=== PATIENT | male | born 1940 | race Caucasian/White ===

== ENCOUNTER 2017-10-14 13:08 | Observation (INO) | payer MEDICARE, BC ==
[~2017-10-14] VITALS: Ht 172.7 cm; Wt 92.8 kg
[2017-10-14] MEDS ORDERED: MORPHINE SULFATE 4 MG/ML SYR IV STA (13:36)
[2017-10-14] MEDS ORDERED: ONDANSETRON HCL INJ 2 MG/ML VIAL IV STA (13:36)
[2017-10-14] MEDS ORDERED: MORPHINE SULFATE 2 MG/ML SYR IV SCH (14:30)
--- NOTE | 2017-10-14 14:53 | Diagnostic Imaging Report ---
PROCEDURE:X-RAY PELVIS, AP VIEW COMPARISON:None. INDICATIONS:LOWER BACK PAIN FINDINGS: There are no fractures, dislocations, lytic or blastic lesions. The bones are well-mineralized. The soft-tissues are unremarkable. CONCLUSION: No acute radiograph abnormality. Dictated by: Melvin Carrillo M.D. on 10/14/2017 at 14:54 Electronically approved by: Melvin Carrillo M.D. on 10/14/2017 at 14:54
[2017-10-14 14:57] LABS: BASOPHILS # (AUTO) 0.1 (0.0-0.1); BASOPHILS % 0.7 % (0.0-1.0); EOSINOPHILS # (AUTO) 0.2 (0.0-0.4); EOSINOPHILS % 2.2 % (0.0-6.0); HEMATOCRIT 43.7 % (38.2-49.6); HEMOGLOBIN 14.4 g/dL (14.0-18.0); LYMPHOCYTES # (AUTO) 1.6 (1.0-3.2); LYMPHOCYTES % 18.2 % (18.0-39.1); MEAN CORPUSCULAR HEMOGLOBIN 28.4 pg (28-32); MEAN CORPUSCULAR VOLUME 86.2 fL (81-99); MONOCYTES # (AUTO) 0.8 (0.2-0.8); MONOCYTES % 9.4 % (4.4-11.3); NEUTROPHILS # (AUTO) 6.1 (2.1-6.9); NEUTROPHILS % 68.8 % (38.7-80.0); PLATELET COUNT 228 x10e3/uL (140-360); RED BLOOD COUNT 5.07 x10e6/uL (4.3-5.7); RED CELL DISTRIBUTION WIDTH 14.4 % (11.7-14.4)
[2017-10-14 15:15] LABS: CREATINE KINASE 255 IU/L (30-200)
[2017-10-14 15:17] LABS: ALANINE AMINOTRANSFERASE 34 IU/L (0-55); ALBUMIN 3.9 g/dL (3.5-5.0); ALBUMIN/GLOBULIN RATIO 1.4 (0.8-2.0); ALKALINE PHOSPHATASE 70 IU/L (40-150); ANION GAP 11.1 mmol/L (8-16); BLOOD UREA NITROGEN 21 mg/dL (7-26); BUN/CREATININE RATIO 19 (6-25); CALCIUM 9.2 mg/dL (8.4-10.2); CARBON DIOXIDE 27 mmol/L (22-29); CHLORIDE 101 mmol/L (98-107); CREATININE, SERUM 1.09 mg/dL (0.72-1.25); EST GLOMERULAR FILTRATION RATE > 60 ML/MIN (60-); GLUCOSE 84 mg/dL (74-118); POTASSIUM 4.1 mmol/L (3.5-5.1); SODIUM 135 mmol/L (136-145)
[2017-10-14] MEDS ORDERED: SODIUM CHLORIDE FLUSH 10 ML SYR INJ PRN (18:00)
[2017-10-14] MEDS ORDERED: ONDANSETRON HCL INJ 2 MG/ML VIAL IV PRN (18:00)
--- OUTSIDE RECORDS SUMMARY | 2017-10-14 18:55 | XMS REPORT ---
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 Allergies, Adverse Reactions, Alerts This patient has no known allergies or adverse reactions. Medications This patient has no known medications. Results Test Description Test Time Test Comments Text Results Atomic Results Result Comments PELVIS AP 1-2 VIEWS [place] [address] Patient Name: QUINTON LEDEZMA MR #: [id number] : 1940 Age/Sex: 77/M Req #: [id number] Adm Physician: Ordered by: JOY ROMERO ANALYSIS TESTER Report #: [id number] Location: ER Room/Bed: Procedure: [id number] DX/PELVIS AP 1-2 VIEWS Exam Date: 10/14/17 Exam Time: 1434 REPORT STATUS: Signed PROCEDURE: X-RAY PELVIS, AP VIEW COMPARISON: None. INDICATIONS: LOWER BACK PAIN FINDINGS: There are no fractures, dislocations, lytic or blastic lesions. The bones are well-mineralized. The soft-tissues are unremarkable. CONCLUSION: No acute radiograph abnormality. Dictated by : Melvin Reza M.D. on 10/14/2017 at 14:54 Electronically approved by: Melvin Reza M.D. on 10/14/2017 at 14:54 Dictated By: MELVIN REZA MD 53 Transcribed By: BRANNON on 10/14/171453 COPY TO: JOY ROMERO NP
[2017-10-14 18:56] LABS: BILIRUBIN,URINE NEGATIVE (NEGATIVE); CLARITY,URINE CLEAR (CLEAR); COLOR,URINE YELLOW (YELLOW); KETONES,URINE NEGATIVE (NEGATIVE); LEUKOCYTE ESTERASE ,URINE NEGATIVE (NEGATIVE); NITRITE,URINE NEGATIVE (NEGATIVE); PROTEIN,URINE DIPSTICK TRACE (NEGATIVE); URINE UROBILINOGEN 1 mg/dL (0.2 - 1)
[2017-10-14] MEDS: MORPHINE SULFATE 2 MG/ML SYR IV PRN (19:00)
[2017-10-14 19:10] LABS: MUCUS,URINE MODERATE (RARE); RBC,URINE 0-5 /HPF (0-5); WBC,URINE (MAN) 0-5 /HPF (0-5)
--- NOTE | 2017-10-14 21:21 | Diagnostic Imaging Report ---
History: Low back pain, fall. Comparison studies: None Technique: Sagittal, coronal and axial T2 , sagittal T1 and IR, axial PD and T2 FS. Intravenous contrast: None Findings: Number of lumbar vertebral bodies: 5. Alignment: Normal lordosis. No scoliosis Soft tissues: Incidental large T2 hyperintense cystic lesion in left renal parenchyma approximately measures 5.3 cm in long axis. Paraspinal muscles: No signal abnormalities. Well-preserved. No atrophic changes Lower thoracic cord: Normal in signal and morphology. The tip of the conus is at T12-L1 . Cauda equina: No masses. No arachnoiditis. Vertebrae: No compression fractures, infection or neoplasm. Degenerative changes: L1-L2: Mild degenerative disc disease. No canal or foraminal stenosis. L2-L3: Mild degenerative disc disease. No canal or foraminal stenosis L3-L4: Mild degenerative disc disease. Disc bulge without canal stenosis. Mild bilateral facet arthrosis. No foraminal stenosis L4-L5: Mild degenerative disc disease. Disc bulge in combination with thickened ligamentum flavum and bilateral facet arthrosis effaces thecal sac without canal stenosis. No significant foraminal stenosis. L5-S1: Moderate degenerative disc disease with decreased T2 signal and decreased intervertebral disc space. Degenerative endplate changes. 3 mm grade 1 retrolisthesis. Disc bulge with superimposed 5 mm left subarticular disc protrusion with possible contact of left S1 nerve root. No canal stenosis. Mild bilateral foraminal stenosis. Mild bilateral facet arthrosis. Visualized bilateral sacroiliac joints: No significant abnormality. IMPRESSION: 1. Mild multilevel lumbar spondylosis with predominant findings at L5-S1. 2. No canal stenosis. 3. Disc bulge with superimposed 5 mm left subarticular disc protrusion with possible contact of left S1 nerve root. Mild bilateral foraminal stenosis at L5-S1. 4. Incidental 5 cm exophytic left renal cystic mass, can be further evaluated with nonemergent dedicated renal ultrasonogram, if previous workup has not been done. Signed by: Dr. Joselyn Lujan M.D. on 10/14/2017 9:17 PM
[2017-10-14 21:32] VITALS: BP 144/87
[2017-10-14 21:45] VITALS: BP 144/87
[2017-10-14 23:59] VITALS: BP 110/59
[2017-10-15] MEDS: MORPHINE SULFATE 2 MG/ML SYR IV PRN ×3 (03:10→16:44)
[2017-10-15] MEDS ORDERED: ATORVASTATIN CA10 MG PO (03:57)
[2017-10-15] MEDS ORDERED: HYDROCHLOROTHIA25 MG PO (03:57)
[2017-10-15] MEDS ORDERED: LOW DOSE ASPIRI81 MG PO (03:57)
[2017-10-15] MEDS ORDERED: OMEPRAZOLE40 MG PO (03:57)
[2017-10-15] MEDS ORDERED: MICARDIS40 MG PO (03:57)
[2017-10-15 04:00] VITALS: BP 125/65
[2017-10-15 08:09] VITALS: BP 110/61
[2017-10-15 12:12] VITALS: BP 149/67
[2017-10-15 16:28] VITALS: BP 119/64
[2017-10-15 20:00] VITALS: BP 124/68
[2017-10-15] MEDS: ATORVASTATIN 10 MG TAB PO SCH (21:55)
[2017-10-16] VITALS (7 sets, daily range): BP systolic 102–122; BP diastolic 57–68
[2017-10-16] MEDS: MORPHINE SULFATE 2 MG/ML SYR IV PRN ×2 (06:27→15:08)
[2017-10-16 06:35] LABS: BASOPHILS # (AUTO) 0.1 (0.0-0.1); EOSINOPHILS # (AUTO) 0.2 (0.0-0.4); EOSINOPHILS % 3.9 % (0.0-6.0); HEMATOCRIT 39.1 % (38.2-49.6); LYMPHOCYTES # (AUTO) 1.5 (1.0-3.2); LYMPHOCYTES % 25.2 % (18.0-39.1); MEAN CORPUSCULAR HEMOGLOBIN 28.3 pg (28-32); MEAN CORPUSCULAR HGB CONC 33.2 g/dL (31-35); MONOCYTES # (AUTO) 0.7 (0.2-0.8); NEUTROPHILS # (AUTO) 3.6 (2.1-6.9); NEUTROPHILS % 58.4 % (38.7-80.0); PLATELET COUNT 215 x10e3/uL (140-360); RED CELL DISTRIBUTION WIDTH 14.1 % (11.7-14.4)
[2017-10-16 06:54] LABS: ANION GAP 11.9 mmol/L (8-16); BLOOD UREA NITROGEN 19 mg/dL (7-26); BUN/CREATININE RATIO 19 (6-25); CALCIUM 8.9 mg/dL (8.4-10.2); CARBON DIOXIDE 28 mmol/L (22-29); CHLORIDE 101 mmol/L (98-107); CREATININE, SERUM 0.99 mg/dL (0.72-1.25); EST GLOMERULAR FILTRATION RATE > 60 ML/MIN (60-); GLUCOSE 93 mg/dL (74-118); POTASSIUM 3.9 mmol/L (3.5-5.1); SODIUM 137 mmol/L (136-145)
[2017-10-16] MEDS: HYDROCHLOROTHIAZIDE 25 MG TAB PO SCH (09:00)
[2017-10-16] MEDS: ASPIRIN 81 MG ENTERIC COATED PO SCH (09:22)
[2017-10-16] MEDS: PANTOPRAZOLE SOD 40 MG TABEC PO SCH (09:22)
[2017-10-16] MEDS: TELMISARTAN 40 MG TAB PO SCH (09:22)
[2017-10-16] MEDS: LIDOCAINE 5% PATCH TP SCH (12:45)
--- NOTE | 2017-10-16 19:33 | Diagnostic Imaging Report ---
EXAM: Renal Ultrasound INDICATION: Renal mass COMPARISON: Lumbar spine MRI October 14, 2017 TECHNIQUE: Transverse and longitudinal sonographic images of the kidneys and bladder were obtained. FINDINGS: RIGHT KIDNEY: 12.2 x 5.6 x 5.8 cm, normal cortical thickness. Echogenicity: Normal Hydronephrosis: None Calculi: None Cyst/Mass: None LEFT KIDNEY: 14 x 6.1 x 5.8 cm, normal cortical thickness. Echogenicity: Normal Hydronephrosis: None Calculi: None Cyst/Mass: There are 2 adjacent simple cysts measuring 5.4 cm x 3 x 5.3 cm in total. BLADDER: Normal in appearance. Pre-void bladder volume 85 cc and post-void bladder volume 0 cc. IMPRESSION: There are 2 adjacent simple cysts measuring up to 5.4 cm in total arising from the posterior lateral aspect of the left kidney inferior pole, corresponding to findings seen on prior lumbar spine MRI. No additional follow-up is indicated. Otherwise, normal sonographic appearance of the kidneys. Signed by: Dr. Eda Onofre M.D. on 10/16/2017 7:30 PM
[2017-10-16] MEDS: ATORVASTATIN 10 MG TAB PO SCH (21:09)
[2017-10-17] VITALS (8 sets, daily range): BP systolic 91–145; BP diastolic 53–66
[2017-10-17] MEDS: HYDROCHLOROTHIAZIDE 25 MG TAB PO SCH (08:59)
[2017-10-17] MEDS: ASPIRIN 81 MG ENTERIC COATED PO SCH (08:59)
[2017-10-17] MEDS: PANTOPRAZOLE SOD 40 MG TABEC PO SCH (09:00)
[2017-10-17] MEDS: TELMISARTAN 40 MG TAB PO SCH (09:00)
[2017-10-17] MEDS: LIDOCAINE 5% PATCH TP SCH (12:30)
--- NOTE | 2017-10-17 20:17 | Consultation ---
DATE OF CONSULTATION: October 17, 2017 NEUROSURGERY CONSULTATION Mr. Sky Patrick is being seen in surgical consultation on October 17, 2017, for pains in his back. The patient tells me he started having pains in his back about 5 days ago. He bent over and suffered rather severe pain that put him down. The next day, he got up, and his legs gave out and he fell. He fell a couple of days in a row when his legs gave out because of pain. He subsequently came to the emergency room here at the hospital and was admitted. He has had severe pain, which has gradually gotten better at bed rest and with various medications and treatments in the hospital. He had prior surgery by me about 20 years ago and has done very well since. He has been retired. He spends most of his time gardening and doing small activities. He does not do any significant regular exercise other than the gardening. He has had no major medical or surgical problems. He has been in good health. He has some cholesterol problems and hypertension problems but nothing serious. ALLERGIES: HE HAS NO ALLERGIES. He has complaints of pains in his back. Occasionally, it goes down his left lower extremity. He has no complaints of weakness or numbness. He has pains in the lower part of his back only. Nothing in his neck. He has no pains in his upper extremities. His joints do not hurt him. He denies any weakness or numbness in the extremities. He has a history, besides what is mentioned above, of GERD. The patient is seen in the hospital. He is in his room, sitting up comfortably. He is having dinner. He is alert and oriented. He is cooperative. Good memory and good speech. Cranial nerves II through XII are intact except for some decreased hearing. He has a good range of motion in his neck. He has good strength in his upper extremities with good tone and coordination, normal reflexes. Straight-leg raising is negative on the right and questionably positive on the left. He has no weakness in his lower extremities. Sensation is normal. Reflexes are about 1+. He was able to get up, but very carefully. He has to use a walker to walk and stand up straight. It hurts him going from a sitting to a standing position. He has tenderness in his lower back. His SI joints are not tender. TFL not tender. I reviewed the patient's MRI. It shows remarkably good spine for somebody his age. It looks like somebody in his 50s. The only real significant problem is at L5-S1 where he has a central disk herniation going to the left and some degenerative changes. OPINION: The patient suffered a lumbar disk herniation, central in nature, going to the left. PLAN: The patient will be using a lumbosacral corset to let this central disk heal over the next 12 weeks. He is to walk every day 1 block 4 times a day, gradually increasing as tolerated. I suggested a lumbosacral corset to prevent him from overdoing things and to give him some help in his walking. He is going to follow up with me at the office in about 2 to 3 weeks. I do not anticipate any surgery. I discussed his care with him. He is going to progress from walking this month to swimming the following month or at least walking in the pool and gradually increase in activities. He needs to lose some weight. We had a discussion about his care with him and his . DIAGNOSIS: Lumbar disk hernia. Conservative care is planned. Job#: [id number]
[2017-10-17] MEDS: ATORVASTATIN 10 MG TAB PO SCH (20:31)
[2017-10-18 04:00] VITALS: BP 136/71
[2017-10-18 07:42] VITALS: BP 109/50
[2017-10-18] MEDS: TELMISARTAN 40 MG TAB PO SCH (09:00)
[2017-10-18] MEDS: HYDROCHLOROTHIAZIDE 25 MG TAB PO SCH (09:00)
[2017-10-18] MEDS: PANTOPRAZOLE SOD 40 MG TABEC PO SCH (10:00)
[2017-10-18] MEDS: ASPIRIN 81 MG ENTERIC COATED PO SCH (10:00)
[2017-10-18] MEDS: LIDOCAINE 5% PATCH TP SCH (10:00)
[2017-10-18 11:11] VITALS: BP 125/58
[2017-10-18 15:37] VITALS: BP 120/78
[2017-10-18] MEDS ORDERED: D5.45%NS/KCL 20MEQ 1,000 ML IV ONE (23:04)
== END 2017-10-18 15:22 | disposition home or self-care (01) ==
LOC: ER 13:08 → ERHOLD 18:52 → IMCU 20:52
DX: M51.27 Other intervertebral disc displacement, lumbosacral region (principal); M54.5 Low back pain; I10 Essential (primary) hypertension; K21.9 Gastro-esophageal reflux disease without esophagitis; E78.5 Hyperlipidemia, unspecified; Z91.81 History of falling
CPT/HCPCS: 36415 ×2; 72148; 72170; 76770; 80048; 80053; 81001; 82550; 82553; 84484; 85025 ×2; 93005; 96376; 97116; 97162; 97530; 99284; G0378 ×5; G8978; G8979; J2270 ×3; J2405

== ENCOUNTER → 2020-07-01 | Day surgery (SDC) | payer MEDICARE, BC ==
[2020-06-26 09:50] LABS: BASOPHILS # (AUTO) 0.1 (0.0-0.1); BASOPHILS % 0.9 % (0.0-1.0); EOSINOPHILS # (AUTO) 0.2 (0.0-0.4); EOSINOPHILS % 2.5 % (0.0-6.0); HEMATOCRIT 45.6 % (38.2-49.6); HEMOGLOBIN 14.7 g/dL (14.0-18.0); LYMPHOCYTES # (AUTO) 1.2 (1.0-3.2); LYMPHOCYTES % 14.8 % (18.0-39.1); MEAN CORPUSCULAR HEMOGLOBIN 27.7 pg (28-32); MEAN CORPUSCULAR HGB CONC 32.2 g/dL (31-35); MEAN CORPUSCULAR VOLUME 85.9 fL (81-99); MONOCYTES # (AUTO) 0.7 (0.2-0.8); MONOCYTES % 9.2 % (4.4-11.3); NEUTROPHILS # (AUTO) 5.8 (2.1-6.9); PLATELET COUNT 209 x10e3/uL (140-360); RED BLOOD COUNT 5.31 x10e6/uL (4.3-5.7); RED CELL DISTRIBUTION WIDTH 14.3 % (11.7-14.4)
[2020-06-26 10:00] LABS: INR 0.94
[2020-06-26 10:11] LABS: ALANINE AMINOTRANSFERASE 24 IU/L (0-55); ALBUMIN 4.1 g/dL (3.5-5.0); ALBUMIN/GLOBULIN RATIO 1.3 (0.8-2.0); ALKALINE PHOSPHATASE 69 IU/L (40-150); BLOOD UREA NITROGEN 20 mg/dL (7-26); BUN/CREATININE RATIO 18 (6-25); CALCIUM 9.2 mg/dL (8.4-10.2); CARBON DIOXIDE 29 mmol/L (22-29); CHLORIDE 102 mmol/L (98-107); CREATININE, SERUM 1.11 mg/dL (0.72-1.25); EST GLOMERULAR FILTRATION RATE > 60 ML/MIN (60-); GLUCOSE 104 mg/dL (74-118); SODIUM 138 mmol/L (136-145)
[2020-07-01] VITALS (8 sets, daily range): BP systolic 100–137; BP diastolic 51–77
[~2020-07-01] VITALS: Ht 172.7 cm; Wt 86.2 kg
[~2020-07-01] MED LIST: ATORVASTATIN CA10 MG PO; FENTANYL CITRATE/PF 100MCG/2 ML INJ ONE; HEPARIN SOD (PORCINE) 1000 UNIT/ML 30ML ONE; HEPARIN SOD/SOD CHLORIDE 2,000 ML ONE; HYDROCHLOROTHIA25 MG PO; IOPAMIDOL 370 MG/ML 200 ML INFUS..BTL INJ ONE; LIDOCAINE HCL 2% LOCAL 20 ML VIAL ONE; LOW DOSE ASPIRI81 MG PO; MICARDIS40 MG PO; MIDAZOLAM HCL 2 MG/2 ML VIAL ONE; NITROGLYCERIN/D5W 200 MCG/ML 250 ML ONE; OMEPRAZOLE40 MG PO; SODIUM CHLORIDE 0.9% 1000ML 1,000 ML ONE; TELMISARTAN-HC1 EACH PO; VERAPAMIL HCL 2.5 MG/ML 2 ML VIAL ONE; VITAMIN B12 PO; VITAMIN D; VITAMIN D3 PO
== END | disposition home or self-care (01) ==
LOC: CATH LAB 09:20
PROVIDERS: ATTEND Internal Medicine Cardiovascular Disease
DX: I25.10 Atherosclerotic heart disease of native coronary artery without angina pectoris (principal); R94.39 Abnormal result of other cardiovascular function study; I10 Essential (primary) hypertension; E78.5 Hyperlipidemia, unspecified; R55 Syncope and collapse; Z01.812 Encounter for preprocedural laboratory examination; Z20.828 Contact with and (suspected) exposure to other viral communicable diseases; Z79.82 Long term (current) use of aspirin; Z82.49 Family history of ischemic heart disease and other diseases of the circulatory system
CPT/HCPCS: 36415; 80053; 85025; 85610; 93454; C1887; J1644; J2001; J2250; J3010; J7030; Q9967; U0002; 99152

== ENCOUNTER → 2022-02-09 | Outpatient (CLI) | payer MEDICARE, BC ==
[~2022-02-09] MED LIST changes: -FENTANYL CITRATE/PF 100MCG/2 ML INJ ONE; -HEPARIN SOD (PORCINE) 1000 UNIT/ML 30ML ONE; -HEPARIN SOD/SOD CHLORIDE 2,000 ML ONE; -IOPAMIDOL 370 MG/ML 200 ML INFUS..BTL INJ ONE; -LIDOCAINE HCL 2% LOCAL 20 ML VIAL ONE; -MIDAZOLAM HCL 2 MG/2 ML VIAL ONE; -NITROGLYCERIN/D5W 200 MCG/ML 250 ML ONE; -SODIUM CHLORIDE 0.9% 1000ML 1,000 ML ONE; -VERAPAMIL HCL 2.5 MG/ML 2 ML VIAL ONE
== END ==
LOC: MRI 08:25
PROVIDERS: ATTEND Psychiatry & Neurology Neurology
DX: G20 Parkinson's disease (principal); R26.9 Unspecified abnormalities of gait and mobility; R20.0 Anesthesia of skin; R29.810 Facial weakness; H81.10 Benign paroxysmal vertigo, unspecified ear
CPT/HCPCS: 70551

== ENCOUNTER 2024-08-29 11:46 | Inpatient (IN) | payer MEDICARE, BC ==
[~2024-08-29] VITALS: Ht 172.7 cm; Wt 87.1 kg
[2024-08-29 12:44] LABS: BASOPHILS # (AUTO) 0.1 (0.0-0.1); BASOPHILS % 0.6 % (0.0-1.0); EOSINOPHILS # (AUTO) 0.3 (0.0-0.4); EOSINOPHILS % 3.6 % (0.0-6.0); HEMATOCRIT 42.8 % (38.2-49.6); HEMOGLOBIN 14.2 g/dL (14.0-18.0); LYMPHOCYTES # (AUTO) 0.9 (1.0-3.2); LYMPHOCYTES % 10.9 % (18.0-39.1); MEAN CORPUSCULAR HEMOGLOBIN 28.5 pg (28-32); MEAN CORPUSCULAR HGB CONC 33.2 g/dL (31-35); MEAN CORPUSCULAR VOLUME 85.9 fL (81-99); MONOCYTES # (AUTO) 0.9 (0.2-0.8); MONOCYTES % 11.1 % (4.4-11.3); NEUTROPHILS # (AUTO) 6.2 (2.1-6.9); NEUTROPHILS % 73.3 % (38.7-80.0); PLATELET COUNT 198 x10e3/uL (140-360); RED BLOOD COUNT 4.98 x10e6/uL (4.3-5.7); RED CELL DISTRIBUTION WIDTH 14.3 % (11.7-14.4); WHITE BLOOD COUNT 8.38 x10e3/uL (4.8-10.8)
[2024-08-29 12:49] LABS: INR 0.97; PROTHROMBIN TIME 13.5 seconds (11.9-14.5)
[2024-08-29 12:50] LABS: PARTIAL THROMBOPLASTIN TIME 29.3 seconds (23.8-35.5)
[2024-08-29 12:56] LABS: ALBUMIN 3.8 g/dL (3.5-5.0); ALBUMIN/GLOBULIN RATIO 1.3 (0.8-2.0); ANION GAP 15.9 mmol/L (8-16); BILIRUBIN,TOTAL 1.5 mg/dL (0.2-1.2); CALCIUM 9.1 mg/dL (8.4-10.2); CREATININE, SERUM 1.02 mg/dL (0.72-1.25); MAGNESIUM 1.8 MG/DL (1.3-2.1); POTASSIUM 3.9 mmol/L (3.5-5.1); TOTAL PROTEIN 6.8 g/dL (6.5-8.1)
[2024-08-29 13:03] LABS: TROPONIN I 0.003 ng/mL (0-0.300)
[2024-08-29 13:14] LABS: CLARITY,URINE CLEAR (CLEAR); COLOR,URINE YELLOW (YELLOW)
[2024-08-29 13:15] LABS: BACTERIA,URINE MODERATE /HPF; BILIRUBIN,URINE SMALL (NEGATIVE); EPITHELIAL CELLS,URINE FEW /LPF; GLUCOSE, URINE NEGATIVE (NEGATIVE); KETONES,URINE 2+ (NEGATIVE); LEUKOCYTE ESTERASE ,URINE NEGATIVE (NEGATIVE); NITRITE,URINE NEGATIVE (NEGATIVE); PH,URINE 5.5 (5 - 7); PROTEIN,URINE DIPSTICK 1+ (NEGATIVE); URINE UROBILINOGEN 1 mg/dL (0.2 - 1)
[2024-08-29] MEDS: SODIUM CHLORIDE 0.9% 1000ML 1,000 ML IV STA ×2 (13:38→16:22)
[2024-08-29] MEDS ORDERED: CEFUROXIME250 MG PO (15:36)
[2024-08-29] MEDS ORDERED: ONDANSETRON ODT4 MG PO (15:36)
[2024-08-29] MEDS: SODIUM CHLORIDE 0.9% 1000ML 1,000 ML IV SCH ×2 (17:43→18:16)
[2024-08-29] MEDS ORDERED: ONDANSETRON HCL INJ 2MG/ML 2ML 2 MG/ML VIAL IV PRN (17:45)
[2024-08-29 17:50] VITALS: PULSE 16; RESP 16; TEMP 97.9
[2024-08-29] MEDS ORDERED: BENICAR20 MG PO (22:06)
[2024-08-29] MEDS ORDERED: QUETIAPINE FUMA25 MG PO (22:06)
[2024-08-29] MEDS ORDERED: ROSUVASTATIN-E1 EAC2 PO (22:06)
[2024-08-29] MEDS ORDERED: ARICEPT10 MG PO (22:06)
[2024-08-29] MEDS ORDERED: ROPINIROLE HCL1 MG PO (22:06)
[2024-08-29] MEDS ORDERED: ATORVASTATIN CA10 MG PO (22:06)
[2024-08-29] MEDS ORDERED: AZILECT0.5 MG PO (22:06)
[2024-08-29] MEDS ORDERED: MEMANTINE HCL10 MG (22:06)
[2024-08-29] MEDS ORDERED: VITAMIN B-121000 MCG PO (22:06)
[2024-08-29 22:30] VITALS: BP 160/89; PULSE 96; RESP 20; TEMP 99.3; O2SAT 98
[2024-08-30] VITALS (9 sets, daily range): BP systolic 116–161; BP diastolic 75–94; PULSE 53–117; RESP 15–22; TEMP 98.3–98.9; O2SAT 96–99
[2024-08-30] MEDS: LORAZEPAM INJ 2 MG/ML VIAL IV PRN (01:41)
[2024-08-30 05:57] LABS: BASOPHILS # (AUTO) 0.1 (0.0-0.1); BASOPHILS % 0.5 % (0.0-1.0); EOSINOPHILS # (AUTO) 0.1 (0.0-0.4); EOSINOPHILS % 1.3 % (0.0-6.0); HEMATOCRIT 43.4 % (38.2-49.6); LYMPHOCYTES # (AUTO) 0.6 (1.0-3.2); LYMPHOCYTES % 5.4 % (18.0-39.1); MEAN CORPUSCULAR HEMOGLOBIN 27.9 pg (28-32); MEAN CORPUSCULAR HGB CONC 32.3 g/dL (31-35); MEAN CORPUSCULAR VOLUME 86.6 fL (81-99); MONOCYTES # (AUTO) 0.8 (0.2-0.8); MONOCYTES % 8.1 % (4.4-11.3); NEUTROPHILS # (AUTO) 8.8 (2.1-6.9); NEUTROPHILS % 84.3 % (38.7-80.0); PLATELET COUNT 204 x10e3/uL (140-360); RED BLOOD COUNT 5.01 x10e6/uL (4.3-5.7)
[2024-08-30 06:15] LABS: ALBUMIN 3.7 g/dL (3.5-5.0); ALBUMIN/GLOBULIN RATIO 1.2 (0.8-2.0); ANION GAP 17.2 mmol/L (8-16); BILIRUBIN,TOTAL 1.4 mg/dL (0.2-1.2); CALCIUM 8.8 mg/dL (8.4-10.2); CREATININE, SERUM 0.84 mg/dL (0.72-1.25); POTASSIUM 4.2 mmol/L (3.5-5.1); TOTAL PROTEIN 6.7 g/dL (6.5-8.1)
[2024-08-30 06:33] LABS: TROPONIN I 0.009 ng/mL (0-0.300)
[2024-08-30] MEDS ORDERED: LORAZEPAM INJ 2 MG/ML VIAL IV PRN (06:45)
[2024-08-30] MEDS: MEMANTINE 10 MG TAB PO SCH (10:44)
[2024-08-30] MEDS: OLMESARTAN 20 MG TAB PO SCH (10:44)
[2024-08-30] MEDS: ROPINIROLE HCL 1 MG TAB PO SCH (10:44)
[2024-08-30] MEDS: QUETIAPINE FUMARATE 25 MG TAB PO SCH (10:44)
[2024-08-30] MEDS: ALBUTEROL/IPRATROPIUM 3 ML NEB ONE (11:54)
[2024-08-30] MEDS: ACETYLCYSTEINE 200 MG/ML 4 ML VIAL ONE (11:54)
[2024-08-30] MEDS: ACETYLCYSTEINE 20% INHAL SOLN 30 ML VIAL INH SCH (11:56)
[2024-08-30] MEDS: ALBUTEROL/IPRATROPIUM 3 ML NEB NEB SCH (11:56)
[2024-08-30] MEDS: ACETYLCYSTEINE 200 MG/ML 4 ML VIAL INH SCH (12:54)
[2024-08-30] MEDS ORDERED: DONEPEZIL HCL 5 MG TAB PO SCH (21:00)
== END 2024-08-30 16:20 | disposition expired | DRG 193 ==
LOC: ER 12:10 → ERHOLD 17:53 → MED/SURG2 21:41
PROVIDERS: ADMIT Internal Medicine; ATTEND Internal Medicine
DX: J18.9 Pneumonia, unspecified organism (principal); I63.9 Cerebral infarction, unspecified; N39.0 Urinary tract infection, site not specified; F02.818 Dementia in other diseases classified elsewhere, unspecified severity, with other behavioral disturbance; F05 Delirium due to known physiological condition; F02.811 Dementia in other diseases classified elsewhere, unspecified severity, with agitation; M62.82 Rhabdomyolysis; J98.11 Atelectasis; J90 Pleural effusion, not elsewhere classified; E86.0 Dehydration; I11.9 Hypertensive heart disease without heart failure; I46.8 Cardiac arrest due to other underlying condition; R29.6 Repeated falls; G20.A1 Parkinson's disease without dyskinesia, without mention of fluctuations; E78.5 Hyperlipidemia, unspecified; K21.9 Gastro-esophageal reflux disease without esophagitis; N40.0 Benign prostatic hyperplasia without lower urinary tract symptoms; Z66 Do not resuscitate; W19.XXXA Unspecified fall, initial encounter; Y92.009 Unspecified place in unspecified non-institutional (private) residence as the place of occurrence of the external cause; Z79.899 Other long term (current) drug therapy
CPT/HCPCS: 36415; 70450; 71045; 71250; 72125; 74176; 80053; 81001; 82550; 82948; 83735; 83880; 84484; 85025; 85610; 85730; 87086; 93005; 94640; 94799; 99284; J0696; J2060; J2470; J7030; J7050